=== PATIENT | female | born 1940 | race Caucasian/White ===

== ENCOUNTER 2019-01-20 20:47 | Inpatient (IN) | payer MEDICARE, BC ==
[~2019-01-20] VITALS: Ht 157.5 cm; Wt 50.0 kg
--- NOTE | 2019-01-20 21:32 | NUR ---
SPOKE WITH HOORIA AT POISON CONTROL. OBSERVE FOR RESP DISTRESS, CMS DEPRESSION, FOR A LITTLE WHILE LONGER. RECOMMENDS: ACETAMINOPHEN, SALICYLATES LEVELS, URINE TOX SCREEN, ALCOHOL.
--- NOTE | 2019-01-20 21:43 | NUR ---
INFORMED ALY MARY OF RECOMMENDATIONS FROM POISON CONTROL. PLEASE SEE NEW ORDERS.
--- NOTE | 2019-01-20 21:46 | NUR ---
DAUGHTER TAWANNA AT BEDSIDE
[2019-01-20 21:58] LABS: BASOPHILS % (AUTO) 0.1 % (0-1); EOSINOPHILS % (AUTO) 0 % (0-6); HEMATOCRIT 42.9 % (35.0-45.0); HEMOGLOBIN 14.1 g/dl (12.0-16.0); LYMPHOCYTES # (AUTO) 0.6 X10'3 (1.1-4.8); LYMPHOCYTES % (AUTO) 3.8 % (21-51); MEAN CORPUSCULAR HEMOGLOBIN 31.4 PG (27.0-31.0); MEAN CORPUSCULAR HGB CONC 32.8 g/dL (33.0-36.5); MEAN CORPUSCULAR VOLUME 95.7 FL (78-98); MEAN PLATELET VOLUME 7.4 FL (7.4-10.4); MONOCYTES % (AUTO) 5.9 % (2-12); NEUTROPHILS # (AUTO) 14.9 X10'3 (1.8-7.7); NEUTROPHILS % (AUTO) 90.2 % (42-75); PLATELET COUNT 228 X10'3 (140-440); RED BLOOD COUNT 4.49 X10'6 (4.20-5.60); RED CELL DISTRIBUTION WIDTH 14.1 % (11.5-14.5); WHITE BLOOD COUNT 16.5 X10'3 (4.5-11.0)
[2019-01-20 22:11] LABS: ALANINE AMINOTRANSFERASE 27 U/L (12-78); ALBUMIN 3.5 G/DL (3.4-5.0); ALBUMIN/GLOBULIN RATIO 1.2 (1.1-1.5); ALKALINE PHOSPHATASE 65 IU/L (46-116); ANION GAP 5 (8-16); ASPARTATE AMINO TRANSFERASE 33 U/L (10-37); BILIRUBIN,TOTAL 0.3 MG/DL (0.1-1.0); BLOOD UREA NITROGEN 18 MG/DL (7-18); BUN/CREATININE RATIO 18.8 (6.6-38.0); CALCIUM 8.8 MG/DL (8.5-10.1); CHLORIDE 104 MMOL/L (99-107); CREATININE 0.96 MG/DL (0.40-0.90); GLUCOSE 155 MG/DL (70-104); POTASSIUM 4.5 MMOL/L (3.5-5.1); SODIUM 139 MMOL/L (135-145); TOTAL CARBON DIOXIDE 30.2 MMOL/L (24-32); TOTAL PROTEIN 6.4 G/DL (6.4-8.2); eGFR 56 ML/MIN
--- NOTE | 2019-01-20 22:20 | NUR ---
DAUGHTER TAWANNA STATED, MY MOM CONFESSED TO HOW MUCH TRAMADOL AND ATIVAN SHE TOOK THIS MORNING. ATIVAN AT LEAST 2 TABS, AND OVER 5 TABS OF TRAMADOL. THE REASON SHE TOOK THE PILLS WAS BECAUSE SHE WAS UPSET AND DIDNT WANT TO WAKE UP.
[2019-01-20 22:26] LABS: ACETAMINOPHEN < 2.0 UG/ML (10-30); ETHANOL < 0.010 GM/DL (0.0-0.010)
--- NOTE | 2019-01-20 22:48 | NUR ---
THI DONALD [phone] FOR CONTACT INFORMATION
--- NOTE | 2019-01-20 22:50 | NUR ---
DAUGHTER THI TOOK HOME ALL JEWELRY
--- NOTE | 2019-01-20 22:56 | NUR ---
02 2 L/MIN NC REMOVED. PT 02 SAT 93% RA
--- NOTE | 2019-01-20 23:11 | NUR ---
PT MORE ALERT, ANSWERS QUESTIONS APPROPRIATELY. CMS INTACT.
--- NOTE | 2019-01-21 00:43 | NUR ---
pt moved from ed 13 to overflow 20. pt needed 1 person assist to transfer from [facility] to .
--- NOTE | 2019-01-21 01:20 | NUR ---
pt is sleeping, no s/s of distress noted.
--- NOTE | 2019-01-21 02:33 | NUR ---
pt continues to sleep, no s/s of distress noted.
--- NOTE | 2019-01-21 04:48 | NUR ---
pt is sleeping on back, rr unlabored.
--- NOTE | 2019-01-21 05:39 | NUR ---
pt continues to sleep, no s/s of distress noted
--- NOTE | 2019-01-21 06:30 | NUR ---
Awake at change of shift. Winking at staff. Asked staff to take her to the bathroom. Ambulated with walker and assistance. Voided large amount. Urine specimen obtained and sent to lab.
[2019-01-21 06:51] LABS: CLARITY,URINE CLOUDY (Clear); COLOR,URINE YELLOW (Yellow); GLUCOSE, URINE NEGATIVE (Neg); KETONES,URINE TRACE mg/dl (Neg); LEUKOCYTE ESTERASE ,URINE NEGATIVE (Neg); NITRITES, URINE POSITIVE (Neg); OCCULT BLOOD,URINE TRACE-INTACT (Neg); PH,URINE 5.5 (4.8-8.0); PROTEIN,URINE NEGATIVE (Neg); UROBILINOGEN,URINE 0.2 E.U/dL (0.2-1.0)
[2019-01-21 06:56] LABS: UA COLLECTION TYPE CLN CATCH MIDSTREAM
[2019-01-21 06:58] LABS: WBC,URINE 20-30 /HPF (0-4)
[2019-01-21 06:59] LABS: BACTERIA,URINE 4+ /HPF (Neg); MUCUS STRANDS NONE SEEN /LPF (Neg); RBC,URINE 0-2 /HPF (0-2); SQUAMOUS EPITHELIAL CELL,UR MANY /LPF (FEW)
[2019-01-21 07:02] LABS: URINE AMPHETAMINE SCREEN NEGATIVE (Neg); URINE BARBITUATE SCREEN NEGATIVE (Neg); URINE BENZODIAZEPINES SCREEN NEGATIVE (Neg); URINE CANNABINOID SCREEN NEGATIVE (Neg); URINE COCAINE SCREEN NEGATIVE (Neg); URINE METHADONE SCREEN NEGATIVE (Neg); URINE OPIATE SCREEN NEGATIVE (Neg); URINE PHENCYCLIDINE SCREEN NEGATIVE (Neg)
[2019-01-21] MEDS ORDERED: ondansetron 4mg rapidly disintigrating tab PO ONE (07:15)
--- NOTE | 2019-01-21 07:30 | NUR ---
Patient stated she was nauseous. Given an emesis bag. Vomited 100cc of clear fluid mixed with bile. Dr. Hogan notified. Order given for Zofran 8 mg. Disintegrating Tab ordered. Administered as ordered.
[2019-01-21] MEDS ORDERED: LORA2TAB96 PO (07:44)
[2019-01-21] MEDS ORDERED: GABA-532 PO (07:44)
[2019-01-21] MEDS ORDERED: THY60T PO (07:44)
[2019-01-21] MEDS ORDERED: OLAN5TAB5 PO (07:44)
[2019-01-21] MEDS ORDERED: TRAM50TA2 PO (07:44)
--- NOTE | 2019-01-21 08:00 | NUR ---
Lab results reveal patient possible UTI. White blood count elevated. Patient also presents as dehydrated, states she has not eaten in "at least two days" and has no recollection of her last bowel movement. Patient also mentioned that she is in "constant pain, especially my stomach and feet." Has difficulty keeping her medications down. "They all make me sick. I vomit all day long." [facility] notified of patient's symptoms. Orders written for further testing.
[2019-01-21] MEDS ORDERED: ondansetron/PF 4mg/2ml inj IV ONE (08:05)
[2019-01-21] MEDS ORDERED: CefTRIAXone 2gm/D5W 50ml 50 ML IV ONE (08:05)
[2019-01-21] MEDS ORDERED: normal saline 1000ML IV soln IV ONE (08:05)
--- NOTE | 2019-01-21 08:30 | NUR ---
Served breakfast tray. Had no strength to feed herself. Allowed staff to feed her oatmeal. Ate 90%. Up and down to the bathroom due to urgency. Voiding small amounts of urine in the commode. Commode placed at bedside due to pt's unstable gait.
[2019-01-21 09:00] LABS: BASOPHILS % (AUTO) 0.1 % (0-1); EOSINOPHILS % (AUTO) 0 % (0-6); HEMATOCRIT 41.3 % (35.0-45.0); HEMOGLOBIN 14.1 g/dl (12.0-16.0); LYMPHOCYTES # (AUTO) 1.2 X10'3 (1.1-4.8); LYMPHOCYTES % (AUTO) 6.4 % (21-51); MEAN CORPUSCULAR HEMOGLOBIN 32.4 PG (27.0-31.0); MEAN CORPUSCULAR HGB CONC 34.1 g/dL (33.0-36.5); MEAN CORPUSCULAR VOLUME 95.2 FL (78-98); MEAN PLATELET VOLUME 8.3 FL (7.4-10.4); MONOCYTES % (AUTO) 5.8 % (2-12); NEUTROPHILS % (AUTO) 87.7 % (42-75); PLATELET COUNT 220 X10'3 (140-440); RED BLOOD COUNT 4.34 X10'6 (4.20-5.60); RED CELL DISTRIBUTION WIDTH 14.1 % (11.5-14.5); WHITE BLOOD COUNT 18.2 X10'3 (4.5-11.0)
--- NOTE | 2019-01-21 09:00 | NUR ---
Maria C ALEMAN and Lucy ALEMAN began IV therapy on patient per doctor's order. IV Rocephin hung to address UTI. Patient cooperative with all procedures. Patient asks many questions about her care. All questions answered to patient's satisfaction.
[2019-01-21 09:22] LABS: ALANINE AMINOTRANSFERASE 33 U/L (12-78); ALBUMIN 3.5 G/DL (3.4-5.0); ALBUMIN/GLOBULIN RATIO 1.1 (1.1-1.5); ALKALINE PHOSPHATASE 66 IU/L (46-116); ANION GAP 4 (8-16); ASPARTATE AMINO TRANSFERASE 50 U/L (10-37); BILIRUBIN,TOTAL 0.5 MG/DL (0.1-1.0); BLOOD UREA NITROGEN 19 MG/DL (7-18); BUN/CREATININE RATIO 21.1 (6.6-38.0); CALCIUM 9.5 MG/DL (8.5-10.1); CHLORIDE 101 MMOL/L (99-107); GLUCOSE 121 MG/DL (70-104); POTASSIUM 4.5 MMOL/L (3.5-5.1); SODIUM 137 MMOL/L (135-145); TOTAL PROTEIN 6.6 G/DL (6.4-8.2); eGFR 60 ML/MIN
--- NOTE | 2019-01-21 10:00 | NUR ---
Chest X-Ray and CT SCan performed. Pt. tolerated both procedures well. Chest x-ray revealed patient has a mass on her left lower lobe. Patient not informed of result at this time. Daughter Kishore called informed of patient's condition with patient's permission.
--- NOTE | 2019-01-21 11:00 | NUR ---
Pt. informed she would be admitted into the hospital to further care for her UTI and high WBC's. Patient accepted this information well. Relieved to be admitted into hospital. In good spirits at this time. Admits to suicidal ideation. "Well yes I did take those pills. Sometimes the pain gets so bad I don't know what to do."
[2019-01-21] MEDS: thyroid, pork 30mg tablet PO SCH (11:16)
[2019-01-21] MEDS ORDERED: magnesium hydroxide 30ml (MOM) UD suspension PO PRN (11:25)
[2019-01-21] MEDS ORDERED: potassium Cl 20 mEq SR tablet PO PRN ×2 (11:25)
[2019-01-21] MEDS ORDERED: acetaminophen 650mg rectal suppository RC PRN (11:25)
[2019-01-21] MEDS ORDERED: ondansetron/PF 4mg/2ml inj IV PRN (11:25)
[2019-01-21] MEDS ORDERED: potassium CL 10mEq/100ml bag 100 ML IV PRN ×2 (11:25)
[2019-01-21] MEDS ORDERED: magnesium 2GM in 50ml NS 50 ML IV PRN (11:25)
[2019-01-21] MEDS: K and/or MAG REPLACEMENT MC SCH (11:25)
[2019-01-21] MEDS ORDERED: acetaminophen 325mg tablet PO PRN ×2 (11:25)
[2019-01-21] MEDS ORDERED: mag hydrox/Alum hydrox/simeth 30ml oral suspension PO PRN (11:25)
[2019-01-21] MEDS ORDERED: magnesium 4gm in 100ml NS 100 ML IV PRN (11:25)
[2019-01-21] MEDS: normal saline 1000ml 1,000 ML IV SCH ×3 (11:25→19:09)
[2019-01-21] MEDS ORDERED: diphenhydrAMINE 25mg capsule PO PRN (11:25)
[2019-01-21] MEDS ORDERED: magnesium Cl slow-release 64mg tablet PO PRN (11:25)
[2019-01-21] MEDS: LORazepam 1 MG tablet PO SCH ×2 (11:36→18:04)
[2019-01-21] MEDS: OLANZapine 2.5MG tablet PO SCH ×2 (11:36→20:43)
[2019-01-21] MEDS: gabapentin 300mg capsule PO SCH ×2 (11:36→20:43)
[2019-01-21] MEDS: traMADol 50MG tablet PO SCH ×3 (11:38→19:10)
[2019-01-21 11:55] LABS: HEMOGLOBIN A1C 5.4 % (4.5-6.2)
--- NOTE | 2019-01-21 12:30 | NUR ---
Appears to be resting at this time. Eyes closed. Breathing even and unlabored.
--- NOTE | 2019-01-21 13:30 | NUR ---
here to visit. Sitting at bedside talking easily with patient. Sharing laughter together. Lunch tray brought to patient. Patient picked at her food. Ate poorly.
--- NOTE | 2019-01-21 15:00 | NUR ---
Up and down to use the commode this afternoon. Presented with urgency throughout the day. Able to get in and out of bed on her own to use the commode without concern of falling.
--- NOTE | 2019-01-21 16:00 | NUR ---
Dr. Bradshaw here to see patient at her bedside.
--- NOTE | 2019-01-21 16:31 | NUR ---
Asking when she will go upstairs. States she is anxious because "I want to be in my own room." IV patent. No redness or swelling noted at insertion site. Daughter Kishore called. Stated she will be visiting later on this evening. Patient informed.
--- NOTE | 2019-01-21 18:46 | NUR ---
report called from LOVE Nixon in ER. Awaiting pt arrival to unit
[2019-01-21 19:00] VITALS: BP 117/64
--- NOTE | 2019-01-21 19:00 | NUR ---
pt arrived to unit via wheelchair and placed into bed. BLL, 2x rails up, sitter at bedside. temp 99.7 86HR 16RR 94% RA BP 117/64 will continue to monitor
[2019-01-21] MEDS ORDERED: LORazepam 1 MG tablet PO SCH (20:00)
[2019-01-21] MEDS ORDERED: gabapentin 300mg capsule PO SCH (20:00)
[2019-01-21] MEDS ORDERED: traMADol 50MG tablet PO SCH (20:00)
[2019-01-21] MEDS ORDERED: OLANZapine 2.5MG tablet PO SCH (20:00)
[2019-01-21] MEDS: heparin, porcine 5000 units/ml vial SQ SCH (20:43)
[2019-01-22] VITALS: BP 139/72
[2019-01-22 04:45] LABS: BASOPHILS % (AUTO) 0.2 % (0-1); EOSINOPHILS % (AUTO) 0.3 % (0-6); HEMATOCRIT 38.7 % (35.0-45.0); HEMOGLOBIN 12.9 g/dl (12.0-16.0); LYMPHOCYTES # (AUTO) 2.7 X10'3 (1.1-4.8); LYMPHOCYTES % (AUTO) 24.3 % (21-51); MEAN CORPUSCULAR HEMOGLOBIN 31.7 PG (27.0-31.0); MEAN CORPUSCULAR HGB CONC 33.4 g/dL (33.0-36.5); MEAN CORPUSCULAR VOLUME 95.1 FL (78-98); MEAN PLATELET VOLUME 7.8 FL (7.4-10.4); MONOCYTES # (AUTO) 0.6 X10'3 (0-0.9); MONOCYTES % (AUTO) 5.8 % (2-12); NEUTROPHILS # (AUTO) 7.6 X10'3 (1.8-7.7); NEUTROPHILS % (AUTO) 69.4 % (42-75); PLATELET COUNT 197 X10'3 (140-440); RED BLOOD COUNT 4.07 X10'6 (4.20-5.60)
[2019-01-22 05:15] LABS: ALANINE AMINOTRANSFERASE 32 U/L (12-78); ALBUMIN 2.9 G/DL (3.4-5.0); ALKALINE PHOSPHATASE 58 IU/L (46-116); ANION GAP 5 (8-16); ASPARTATE AMINO TRANSFERASE 51 U/L (10-37); BILIRUBIN,TOTAL 0.4 MG/DL (0.1-1.0); BLOOD UREA NITROGEN 12 MG/DL (7-18); BUN/CREATININE RATIO 15.6 (6.6-38.0); CALCIUM 7.9 MG/DL (8.5-10.1); CHLORIDE 109 MMOL/L (99-107); CHOL/HDL RATIO 1.9 (0.00-4.99); CHOLESTEROL 146 MG/DL (0-200); CREATININE 0.77 MG/DL (0.40-0.90); GLUCOSE 95 MG/DL (70-104); HDL CHOLESTEROL 75 MG/DL (35-60); LDL CHOLESTEROL 57 MG/DL (50-100); PHOSPHORUS 2.1 MG/DL (2.3-4.5); POTASSIUM 4.1 MMOL/L (3.5-5.1); SODIUM 146 MMOL/L (135-145); TOTAL CARBON DIOXIDE 31.8 MMOL/L (24-32); TOTAL PROTEIN 5.9 G/DL (6.4-8.2); TRIGLYCERIDES 66 MG/DL (20-135); eGFR 72 ML/MIN
--- NOTE | 2019-01-22 06:30 | NUR ---
Problems reprioritized. Patient report given, questions answered & plan of care reviewed with LOVE Mahoney.
[2019-01-22] MEDS: K and/or MAG REPLACEMENT MC SCH (06:40)
--- NOTE | 2019-01-22 06:59 | NUR ---
Patient in room [facility]. I have received report from MILTON ALEMAN and had the opportunity to ask questions and assume patient care.
[2019-01-22] MEDS: normal saline 1000ml 1,000 ML IV SCH (07:25)
[2019-01-22] MEDS: thyroid, pork 30mg tablet PO SCH (07:54)
[2019-01-22] MEDS: gabapentin 300mg capsule PO SCH ×2 (07:54→19:59)
[2019-01-22] MEDS: traMADol 50MG tablet PO SCH ×2 (07:55→20:00)
[2019-01-22] MEDS: CefTRIAXone/D5W-Rocephin 1gm 50 ML IV SCH (07:56)
[2019-01-22 08:00] VITALS: BP 157/84
[2019-01-22] MEDS: heparin, porcine 5000 units/ml vial SQ SCH ×2 (08:00→20:00)
[2019-01-22] MEDS: LORazepam 1 MG tablet PO SCH ×2 (08:00→19:58)
[2019-01-22] MEDS: OLANZapine 2.5MG tablet PO SCH ×2 (08:00→20:00)
--- NOTE | 2019-01-22 09:52 | NUR ---
Malnutrition consult: Per malnutrition risk screening with RN pt reports 2-13 lb wt loss with decreased appetite. Pt admit with overdose from pain meds with possible SI, currently on suicide precautions with a sitter. Found to have UTI with possible metabolic encephalopathy. Pt documented as confused and A/O x 2. Most recent documented wt hx is 58 kg from July 2015. Pt currently on heart healthy diet with documented 50% PO intake likely closely meeting nutrient needs for geriatric age. Pt with no significant decrease in muscle strength and no edema. Pt currently does not meet criteria for malnutrition. Will continue to follow. Addendum: 01/22/19 at [address] Amended: Links added.
[2019-01-22 11:24] VITALS: BP 127/75
[2019-01-22] MEDS ORDERED: bisacodyl 10mg suppository rectal RC PRN (15:25)
[2019-01-22] MEDS ORDERED: magnesium citrate 296ml oral solution PO PRN (15:25)
[2019-01-22] MEDS: dextrose 5%-1/2 normal saline 1,000 ML IV SCH (16:44)
--- NOTE | 2019-01-22 17:29 | NUR ---
PT REFUSING TO KEEP TELE MONITOR ON.
--- NOTE | 2019-01-22 18:46 | NUR ---
Problems reprioritized. Patient report given, questions answered & plan of care reviewed with HARDIK DYE RN.
[2019-01-22 20:00] VITALS: BP 139/76
[2019-01-23] VITALS: BP 117/70
[2019-01-23 05:38] LABS: ALANINE AMINOTRANSFERASE 79 U/L (12-78); ALBUMIN 2.8 G/DL (3.4-5.0); ALKALINE PHOSPHATASE 72 IU/L (46-116); ANION GAP 6 (8-16); ASPARTATE AMINO TRANSFERASE 77 U/L (10-37); BILIRUBIN,TOTAL 0.4 MG/DL (0.1-1.0); BLOOD UREA NITROGEN 7 MG/DL (7-18); BUN/CREATININE RATIO 10.3 (6.6-38.0); CHLORIDE 111 MMOL/L (99-107); CREATININE 0.68 MG/DL (0.40-0.90); GLUCOSE 98 MG/DL (70-104); MAGNESIUM 2.3 MG/DL (1.5-2.4); PHOSPHORUS 1.7 MG/DL (2.3-4.5); POTASSIUM 3.5 MMOL/L (3.5-5.1); SODIUM 146 MMOL/L (135-145); TOTAL CARBON DIOXIDE 29.4 MMOL/L (24-32); TOTAL PROTEIN 5.7 G/DL (6.4-8.2); eGFR 83 ML/MIN
[2019-01-23 05:41] LABS: BASOPHILS % (AUTO) 0.3 % (0-1); EOSINOPHILS # (AUTO) 0.1 X10'3 (0-0.9); EOSINOPHILS % (AUTO) 1.4 % (0-6); HEMATOCRIT 39.1 % (35.0-45.0); HEMOGLOBIN 12.9 g/dl (12.0-16.0); LYMPHOCYTES # (AUTO) 1.6 X10'3 (1.1-4.8); LYMPHOCYTES % (AUTO) 26.1 % (21-51); MEAN CORPUSCULAR HEMOGLOBIN 31.3 PG (27.0-31.0); MEAN CORPUSCULAR HGB CONC 33.1 g/dL (33.0-36.5); MEAN CORPUSCULAR VOLUME 94.8 FL (78-98); MONOCYTES # (AUTO) 0.5 X10'3 (0-0.9); MONOCYTES % (AUTO) 7.4 % (2-12); NEUTROPHILS % (AUTO) 64.8 % (42-75); PLATELET COUNT 196 X10'3 (140-440); RED BLOOD COUNT 4.13 X10'6 (4.20-5.60); RED CELL DISTRIBUTION WIDTH 13.7 % (11.5-14.5); WHITE BLOOD COUNT 6.2 X10'3 (4.5-11.0)
[2019-01-23] MEDS: dextrose 5%-1/2 normal saline 1,000 ML IV SCH ×2 (06:00→09:44)
--- NOTE | 2019-01-23 06:25 | NUR ---
Problems reprioritized. Patient report given, questions answered & plan of care reviewed with AGNES ALEMAN.
--- NOTE | 2019-01-23 06:29 | NUR ---
Patient in room [facility]. I have received report from georgi hussein and had the opportunity to ask questions and assume patient care.
[2019-01-23] MEDS: CefTRIAXone/D5W-Rocephin 1gm 50 ML IV SCH (07:44)
[2019-01-23] MEDS: LORazepam 1 MG tablet PO SCH (07:46)
[2019-01-23] MEDS: thyroid, pork 30mg tablet PO SCH (07:46)
[2019-01-23] MEDS: OLANZapine 2.5MG tablet PO SCH (07:46)
[2019-01-23] MEDS: gabapentin 300mg capsule PO SCH (07:46)
[2019-01-23] MEDS: heparin, porcine 5000 units/ml vial SQ SCH (07:47)
[2019-01-23] MEDS: traMADol 50MG tablet PO SCH (07:47)
[2019-01-23 08:00] VITALS: BP 136/74
[2019-01-23] MEDS: K and/or MAG REPLACEMENT MC SCH (08:00)
[2019-01-23 11:32] VITALS: BP 128/95
--- NOTE | 2019-01-23 15:38 | NUR ---
Patient seen by Dr Dias, and evaluated by Mental health. Patient cleared by mental health for safe discharge home. Dr dias informed. patient appears stable. Awaiting Dc orders.
[2019-01-23] MEDS ORDERED: LACT1CAP26 PO (16:19)
[2019-01-23] MEDS ORDERED: LEVO500T89 PO (16:19)
--- NOTE | 2019-01-23 17:30 | NUR ---
DC orders given. All DC instructions given to patient and daughter. Dc home 1600hrs. meds called into [facility] .
[2019-01-23] MEDS ORDERED: lactobacillus rhamnosus 10,000 MMU CELLS/CAPSULE PO SCH (20:00)
== END 2019-01-23 16:30 | disposition home or self-care (01) | DRG 917 ==
LOC: ER 20:48 → SUR 3N 01-21 19:00 → CMPBEDREQ 01-21 19:43
PROVIDERS: ADMIT Family Medicine; ATTEND Family Medicine
DX: T42.4X2A Poisoning by benzodiazepines, intentional self-harm, initial encounter (principal); G93.41 Metabolic encephalopathy; N39.0 Urinary tract infection, site not specified; F31.30 Bipolar disorder, current episode depressed, mild or moderate severity, unspecified; E87.0 Hyperosmolality and hypernatremia; B96.20 Unspecified Escherichia coli [E. coli] as the cause of diseases classified elsewhere; E03.9 Hypothyroidism, unspecified; G62.9 Polyneuropathy, unspecified; M19.90 Unspecified osteoarthritis, unspecified site; T40.4X2A Poisoning by other synthetic narcotics, intentional self-harm, initial encounter; Y92.89 Other specified places as the place of occurrence of the external cause; Z88.0 Allergy status to penicillin; Z88.2 Allergy status to sulfonamides; Z88.5 Allergy status to narcotic agent
CPT/HCPCS: 36415; 70450; 71045; 71250; 80053; 80061; 80305; 80320; 80329; 81001; 83036; 83605; 83735; 84100; 84145; 84443; 85025; 87040; 87077; 87081; 87088; 87186; 96365; 96375; 97161; 97530; 99285; G0378; J0696; J1644; J2405; J7030

== ENCOUNTER 2019-04-22 08:30 | Day surgery (SDC) | payer MEDICARE, BC ==
[~2019-04-22] VITALS: Ht 160 cm; Wt 51.3 kg
[2019-04-22] VITALS (14 sets, daily range): BP systolic 137–164; BP diastolic 70–101
[~2019-04-22 08:30] MED LIST: GABA-532 PO; LACT1CAP26 PO; LORA2TAB96 PO; OLAN5TAB5 PO; THY60T PO; TRAM50TA2 PO
[2019-04-22] MEDS ORDERED: normal saline 1000ml 1,000 ML IV PRN (08:55)
[2019-04-22] MEDS ORDERED: ASCO-316 PO (09:21)
[2019-04-22] MEDS ORDERED: OCUVITE PO (09:21)
[2019-04-22] MEDS ORDERED: ESTR1TAB PO (09:21)
[2019-04-22] MEDS ORDERED: CYAN500T63 PO (09:21)
[2019-04-22 09:26] LABS: BASOPHILS % (AUTO) 0.2 % (0-1); EOSINOPHILS % (AUTO) 0.7 % (0-6); HEMOGLOBIN 14.6 g/dl (12.0-16.0); LYMPHOCYTES # (AUTO) 1.3 X10'3 (1.1-4.8); LYMPHOCYTES % (AUTO) 21.7 % (21-51); MEAN CORPUSCULAR HEMOGLOBIN 31.9 PG (27.0-31.0); MEAN CORPUSCULAR HGB CONC 33.9 g/dL (33.0-36.5); MEAN CORPUSCULAR VOLUME 94.1 FL (78-98); MEAN PLATELET VOLUME 7.1 FL (7.4-10.4); MONOCYTES # (AUTO) 0.4 X10'3 (0-0.9); MONOCYTES % (AUTO) 6.4 % (2-12); NEUTROPHILS # (AUTO) 4.3 X10'3 (1.8-7.7); PLATELET COUNT 282 X10'3 (140-440); RED BLOOD COUNT 4.57 X10'6 (4.20-5.60); RED CELL DISTRIBUTION WIDTH 14.3 % (11.5-14.5)
[2019-04-22] MEDS ORDERED: fentaNYL/PF 50MCG/1 ML 2ML syringe IV PRN (09:35)
[2019-04-22] MEDS ORDERED: LIDOcaine 1%/PF 5ML 10 MG/ML VIAL SQ ONE (09:35)
[2019-04-22] MEDS ORDERED: midazolam 2 mg/2 ml injection IV PRN (09:35)
[2019-04-22 09:38] LABS: ALBUMIN 3.6 G/DL (3.4-5.0); ANION GAP 7 (8-16); BLOOD UREA NITROGEN 10 MG/DL (7-18); BUN/CREATININE RATIO 12.5 (6.6-38.0); CALCIUM 9.2 MG/DL (8.5-10.1); CHLORIDE 104 MMOL/L (99-107); GLUCOSE 106 MG/DL (70-104); POTASSIUM 3.9 MMOL/L (3.5-5.1); SODIUM 142 MMOL/L (135-145); TOTAL CARBON DIOXIDE 30.8 MMOL/L (24-32); eGFR 69 ML/MIN
[2019-04-22] MEDS ORDERED: midazolam 2 mg/2 ml injection ONE (10:07)
[2019-04-22] MEDS ORDERED: fentaNYL/PF 50MCG/1 ML 2ML syringe ONE (10:08)
--- NOTE | 2019-04-22 11:02 | NUR ---
PT RETURNED TO ROOM VIA TOMÁS RUBIN REPORT FROM RN, PT DENIES PAIN/SOB/DIZZINESS-CLAUDIAR VINITA AT [id number] TO LEFT POSTERIOR MID BACK IS CDI-NO REDNESS/BRUISING/SWELLING NOTED-PT REQUESTING SNACK TRAY AND JUICE. Addendum: 04/22/19 at 1149 by Lynette Dowling RN Amended: Links added.
== END 2019-04-22 13:55 | disposition home or self-care (01) ==
LOC: SSTAY O 08:30
PROVIDERS: ATTEND Radiology Diagnostic Radiology
DX: R91.1 Solitary pulmonary nodule (principal); C34.32 Malignant neoplasm of lower lobe, left bronchus or lung; F31.9 Bipolar disorder, unspecified; M19.90 Unspecified osteoarthritis, unspecified site; E03.9 Hypothyroidism, unspecified; E87.0 Hyperosmolality and hypernatremia; Z98.890 Other specified postprocedural states; Z88.0 Allergy status to penicillin; Z88.2 Allergy status to sulfonamides; Z88.5 Allergy status to narcotic agent; Z80.9 Family history of malignant neoplasm, unspecified
CPT/HCPCS: 32405; 36415; 71045; 77012; 80048; 85025; 99152; 99153; J2250; J3010; J7030; 88305; 88341; 88342